=== PATIENT | male | born 1955 | race Caucasian/White ===

== ENCOUNTER 2017-01-18 09:33 | Inpatient (IN) | payer BC ==
--- NOTE | ~2017-01-18 | EGD ---
EGD REPORT [facility] [address] [address] NAME: ZULEYKA CLAY JR : 53 STATUS : ADM IN PAT#: [id number] AGE: 61 ADM/REG DATE : 01/18/17 MR#: [id number] REPORT SERV DATE: 01/20/17 DICTATED BY: MOHIT RENTERIA DATE: 01/20/17 REPORT STATUS : Draft TRANSCRIBED BY: [employer] DATE: 01/20/17 Endoscopy Center Patient Name: Zuleyka Clay Date of : 1955 Attending MD: MOHIT RENTERIA, Procedure Date No Time: 01/20/2017 Procedure: Upper GI endoscopy Indications: Iron deficiency anemia Medicines: Monitored Anesthesia Care Complications: No immediate complications. Estimated blood loss: None. Procedure: Pre-Anesthesia Assessment: - ASA Grade Assessment: II - A patient with mild systemic disease. After obtaining informed consent, the endoscope was passed under direct vision. Throughout the procedure, the patient's blood pressure, pulse, and oxygen saturations were monitored continuously. The GIF [id number] was introduced through the mouth, and advanced to the second part of duodenum. The upper GI endoscopy was accomplished without difficulty. The patient tolerated the procedure well. Findings: LA Grade C (one or more mucosal breaks continuous between tops of 2 or more mucosal folds, less than 75% circumference) esophagitis with no bleeding was found in the lower third of the esophagus. Biopsies were taken with a cold forceps for histology. Verification of patient identification for the specimen was done. Estimated blood loss was minimal. The exam of the esophagus was otherwise normal. Mild inflammation was found in the entire examined stomach. Biopsies were taken with a cold forceps for histology. Verification of patient identification for the specimen was done. Estimated blood loss was minimal. The cardia and gastric fundus were normal on retroflexion. The examined duodenum was normal. Multiple biopsies were obtained in the 2nd part of the duodenum with cold forceps for histology. Impression: - LA Grade C reflux esophagitis. Biopsied. - Gastritis. Biopsied. - Normal examined duodenum. - Multiple biopsies were obtained in the 2nd part of the duodenum. Recommendation: - Use Protonix (pantoprazole) 40 mg PO daily. EGD REPORT [address] [address] NAME: ZULEYKA CLAY JR : 53 STATUS : ADM IN [facility]#: [id number] AGE: 61 ADM/REG DATE : 01/18/17 MR#: [id number] REPORT SERV DATE: 01/20/17 DICTATED BY: MOHIT RENTERIA DATE: 01/20/17 REPORT STATUS : Draft TRANSCRIBED BY: [employer] DATE: 01/20/17 - Await pathology results. - Continue present medications. - Return to previous diet. Procedure Code(s): --- Professional --- 28237, Esophagogastroduodenoscopy, flexible, transoral; with biopsy, single or multiple Diagnosis Code(s): --- Professional --- K21.0, Gastro-esophageal reflux disease with esophagitis K29.70, Gastritis, unspecified, without bleeding D50.9, Iron deficiency anemia, unspecified CPT copyright 2013 [employer]. All rights reserved. The codes documented in this report are preliminary and upon railroad crossing protection maintainer review may be revised to meet current compliance requirements. MOHIT RENTERIA, 01/20/2017 1:14 PM Number of Addenda: 0 Note Initiated On: 01/20/2017 12:33 PM Scope Withdrawal Time 0 hours 0 minutes 0 seconds [id number] [id number]
--- NOTE | ~2017-01-18 | HP ---
History And Physical [place] [address] [facility] [place]. [address] NAME: ZULEYKA PEPE JR : 53 STATUS : REG ER PAT#: [id number] AGE: 61 ADM/REG DATE : 01/18/17 MR#: [id number] REPORT SERV DATE: 01/18/17 DICTATED BY: EVA CARTER DATE: 01/18/17 REPORT STATUS : Draft TRANSCRIBED BY: KEVIN DATE: 01/18/17 DATE OF ADMISSION: 01/18/2017 REASON FOR ADMISSION: Anemia, profound, hematocrit of 12.5%. HISTORY OF PRESENT ILLNESS: This is a 61-year-old white male, who says his coworkers said he looked pale for the last several months. He does have dyspnea with exertion and his gives out most of the time. He does not work out in the yard very much. At work today, he had chest pain and fell down. He did not lose consciousness. Had no seizure. He was brought to the emergency room from [facility] in [place], where he was found by Dr. Kaley Best to have a hematocrit of 12.5%, and a hemoglobin of 4. The patient is being set of transfusion right now. PAST MEDICAL HISTORY: This is his first hospitalization. He has no medical contact. No primary care physician. FAMILY HISTORY: His mother has had some heart troubles and is alive. Lives in [place]. He had a sister from lymphoma. He had a sister from alcoholism. SOCIAL HISTORY: He works at [employer]. Attends [employer] at [employer]. Lives in [place]. Does not smoke any cigarettes. He does not take any alcohol. Has no children. He is . REVIEW OF SYSTEMS: He has some chest pain, when he stood up, left precordial area. He had a near syncopal episode when he stood up. He has had no fever, chills, night sweats, melena, hematemesis, nausea, vomiting, or diarrhea. He has had no melena. He does have shortness of breath and fatigue. The remainder review of systems is negative. PHYSICAL EXAMINATION: VITAL SIGNS: Blood pressure was 117/72, with a heart rate 80, respiratory rate 18, and afebrile. HEENT: EOMI. Sclerae clear. Conjunctivae pink. NECK: No bruit without any JVD. CHEST: Clear to A and P. HEART: Regular S1, S2 without murmur, gallop, or click. ABDOMEN: Soft, nontender. Bowel sounds are positive. No HSM. EXTREMITIES: He has had no edema. Distal pulses are intact. DTRs are equal in the knees and ankles. Injury/Safety Hazard Assessment is equal and symmetric bilaterally. Coordination is intact. He has no tremor. GENERAL: He is very pale including the pallor of his tongue. HOME MEDICATIONS: Aspirin 325 p.o. b.i.d. p.r.n. headache, and Echinacea. LABORATORY DATA: His hemoglobin was 3.1, hematocrit 12.5, MCV is 58.1, white count of 6.4, History And Physical [address] [address] NAME: ZULEYKA PEPE JR : 53 STATUS : REG ER PAT#: [id number] AGE: 61 ADM/REG DATE : 01/18/17 MR#: [id number] REPORT SERV DATE: 01/18/17 DICTATED BY: EVA CARTER DATE: 01/18/17 REPORT STATUS : Draft TRANSCRIBED BY: MODL DATE: 01/18/17 and platelets 262,000. His INR was 1.2. PTT 28.8, protime of 15. His type and screen, O negative blood and he is antibody screen negative. Sodium 140, potassium 3.6, creatinine 0.72, BUN 7, glucose 103, and magnesium 2.5. Troponin is less than 0.02. Glucose 103. Chest x-ray was done that showed cardiomegaly, but no other cardiopulmonary process was noted. ASSESSMENT: 1. Anemia, profound and severe. 2. Chest pain secondary to #1. 3. Iron deficiency. MCV is 58. This anemia likely occurred over a long period of time with blood loss to unknown reason. He deserves a colonoscopy. We will transfuse him with 2 units of red cells now. If he is asymptomatic after that and hematocrit is over 20, we will discharge home for outpatient colonoscopy. PLAN: I am going to go ahead and start him on iron orally. We will have to send him to a primary care doctor after he leaves. DB/MODL Eva Carter M.D. / [phone] CC: Torres Barnes Jr, MD
--- NOTE | ~2017-01-18 | DS ---
Discharge Summary [place] [id number] [place]. [address] NAME: ZULEYKA PEPE JR : 53 STATUS : DIS IN PAT#: [id number] AGE: 61 ADM/REG DATE : 01/18/17 MR#: [id number] REPORT SERV DATE: 01/22/17 DICTATED BY: EVA DAVIDSON DATE: 01/21/17 REPORT STATUS : Draft TRANSCRIBED BY: MODL DATE: 01/21/17 ADMISSION DATE: 01/18/2017 DISCHARGE DATE: 01/21/2017 DISCHARGE DIAGNOSES: 1. Severe symptomatic microcytic anemia with admission hemoglobin 3.1, MCV 58.1. 2. Severe iron deficiency with iron less than 5, TIBC 459, and ferritin 1. 3. Chest pain associated with anemia. 4. Near-syncope associated with anemia. 5. Uncontrolled hypertension. 6. Internal hemorrhoids, on colonoscopy. 7. LA grade C reflux esophagitis, on EGD. 8. Gastritis, on EGD. OPERATIONS AND PROCEDURES: 1. Upper GI endoscopy with biopsy, 01/20/2017. 2. Colonoscopy, 01/20/2017. PRESENT ILLNESS: This is a 61-year-old white male who was triaged in the emergency room on 01/18/2017 at 0933 hours complaining of chest tightness. In the emergency room, he was found to have a hemoglobin of 3.1. He was referred to the Hospitalist Service for admission. He was seen by Dr. Eva Bradley and admitted as described on admission history and physical examination. ADDITIONAL HISTORY: Per Dr. Bradley. PHYSICAL EXAMINATION: Per Dr. Bradley. ADMISSION LABORATORY: Per Dr. Bradley. HOSPITAL COURSE: He was admitted to [address] [place] [address] with a severe symptomatic microcytic anemia as described. On admission, he was transfused to a hemoglobin of 7.5, which required 4 units of packed red blood cells. Iron studies were obtained and are as noted above. He was started on both p.o. iron and IV Nulecit. Serial troponins x3 were less than 0.02. An echocardiogram was done that showed an EF of 50% with a small pericardial effusion. Post transfusion, he did not have further near-syncope or any chest pain. GI consultation was obtained. On 01/20/2017, he was taken to the GI lab. Colonoscopy and Discharge Summary [place] [address] [address] NAME: ZULEYKA PEPE JR : 53 STATUS : DIS IN PAT#: [id number] AGE: 61 ADM/REG DATE : 01/18/17 MR#: [id number] REPORT SERV DATE: 01/22/17 DICTATED BY: EVA DAVIDSON DATE: 01/21/17 REPORT STATUS : Draft TRANSCRIBED BY: MODL DATE: 01/21/17 EGD were performed by Dr. Esteban with findings as noted above. Biopsies are pending. He was recommended that he take Protonix 40 mg daily. Pending biopsy results and followup hemoglobin and iron studies, he may require further GI evaluation such as capsule endoscopy, etc. There were no in-hospital complications. It was noted that he had high blood pressure, which had not been previously documented. Blood pressures while hospitalized were as high as 186/90. He was treated with p.r.n. hydralazine with plans to transition to p.o. medications at discharge. When seen on 01/21/2017, except for poor rest, he felt well with no chest pain or dizziness. He was eating. His hemoglobin was 7.5. At this point in his hospitalization, it was felt he had achieved a level of improvement and stability where he could be safely discharged home. A new appointment is being scheduled for him to see Dr. Lillian Cruz on 01/28/2017 at 2:45. He will continue with home diet and activity. He was advised not to use any NSAIDs. DISCHARGE MEDICATIONS: Will be Protonix 40 mg daily, slow iron 1 daily, and Norvasc 5 mg daily until followup with Dr. Cruz. GI was to follow up his biopsy results and contact him. DD/KEVIN Eva Davidson M.D. / [id number] CC: Josef Jackson M.D. [facility] [place]
--- NOTE | ~2017-01-18 | CN ---
Consultation Report [facility] [address] [place]. [address] NAME: ZULEYKA CLAY JR : 53 STATUS : ADM IN [facility]#: [id number] AGE: 61 ADM/REG DATE : 01/18/17 MR#: [id number] REPORT SERV DATE: 01/19/17 DICTATED BY: DUSTIN ESTEBAN DATE: 01/19/17 REPORT STATUS : Draft TRANSCRIBED BY: MODL DATE: 01/19/17 CONSULTATION DATE OF CONSULTATION: 01/19/2017 REASON FOR CONSULTATION: Severe iron deficiency anemia. HISTORY OF PRESENT ILLNESS: Mr. Clay is a 61-year-old man, who has had approximately eight to nine months history of progressive weakness, shortness of breath, dyspnea on exertion, presented yesterday with chest tightness. Came to the emergency room, and was noted to have a hemoglobin in the 3 range. He was transfused. He was noted to be markedly microcytic. The patient denies any overt bleeding such as black-tarry stools or bright red blood per rectum. He reports he takes 2 aspirins for headaches approximately one to two times every one to two weeks. PAST MEDICAL HISTORY: Essentially unremarkable. ALLERGIES: HE IS ALLERGIC TO ERYTHROMYCIN. HOME MEDICATIONS: None. FAMILY HISTORY: There is no family history of GI or other GI malignancy. SOCIAL HISTORY: He does not smoke. He reports he drinks approximately once every four months. REVIEW OF SYSTEMS: As mentioned in the HPI, but was otherwise negative. PHYSICAL EXAMINATION: VITAL SIGNS: Revealed a temperature of 97.6, heart rate of 74, blood pressure 165/99, and O2 saturation was 99% on room air. GENERAL: The patient was lying in bed, in no apparent distress. HEENT: His head is atraumatic and normocephalic. His sclerae were nonicteric. His conjunctivae were clear. NECK: Revealed no crepitus or thyromegaly. LUNGS: Clear to auscultation bilaterally. ABDOMEN: Nontender and nondistended. There is no guarding or rebound. EXTREMITIES: Revealed no clubbing, cyanosis, or edema. SKIN: Revealed possibly vitiligo on the upper arms, but no other changes. PSYCH: He is alert and oriented x3 with a proper affect and mood. NEUROLOGIC: He had no tremor or asterixis. LABORATORY VALUES: Initial hemoglobin was 3.1. It is currently 6.3, although he has Consultation Report [place] [address] [place]. [address] NAME: ZULEYKA CLAY JR : 53 STATUS : ADM IN [facility]#: [id number] AGE: 61 ADM/REG DATE : 01/18/17 MR#: [id number] REPORT SERV DATE: 01/19/17 DICTATED BY: DUSTIN ESTEBAN DATE: 01/19/17 REPORT STATUS : Draft TRANSCRIBED BY: MODL DATE: 01/19/17 received blood since this time. His platelets were 262. His ferritin was 1. His B12 and folate were normal. IMPRESSION: Severe iron deficiency. PLAN: We will plan an upper and lower endoscopy. This was explained to the patient in detail including the risks of bleeding, infection, perforation, adverse reaction to sedatives. He was notified that he could take a prep for the procedure. He was notified any complication could require surgery and be life threatening. The patient is agreeable to proceed, scheduled the following day. Thank for allowing me to evaluate the patient. Please do not hesitate if you have any further concerns or questions. GO/MODL Dustin Esteban MD / [id number] CC: Spencer Davidson M.D.
--- NOTE | ~2017-01-18 | EGD ---
EGD REPORT [facility] [address] [address] NAME: ADAM CLAY JR : 53 STATUS : ADM IN PAT#: [id number] AGE: 61 ADM/REG DATE : 01/18/17 MR#: [id number] REPORT SERV DATE: 01/20/17 DICTATED BY: MOHIT RENTERIA DATE: 01/20/17 REPORT STATUS : Draft TRANSCRIBED BY: [employer] DATE: 01/20/17 Endoscopy Center Patient Name: Adam Clay Date of : 1955 Attending MD: MOHIT RENTERIA, Procedure Date No Time: 01/20/2017 Procedure: Colonoscopy Indications: Iron deficiency anemia Medicines: Monitored Anesthesia Care Complications: No immediate complications. Estimated blood loss: None. Procedure: Pre-Anesthesia Assessment: - ASA Grade Assessment: II - A patient with mild systemic disease. After I obtained informed consent, the scope was passed under direct vision. Throughout the procedure, the patient's blood pressure, pulse, and oxygen saturations were monitored continuously. The CF [id number] was introduced through the anus and advanced to the terminal ileum. The colonoscopy was performed without difficulty. The patient tolerated the procedure well. The quality of the bowel preparation was adequate. Findings: The perianal and digital rectal examinations were normal. Internal hemorrhoids were found during retroflexion and were Grade II (internal hemorrhoids that prolapse but reduce spontaneously). The exam was otherwise without abnormality on direct and retroflexion views. The terminal ileum appeared normal. Impression: - Internal hemorrhoids. - The examination was otherwise normal on direct and retroflexion views. - The examined portion of the ileum was normal. Recommendation: - Patient has a contact number available for emergencies. The signs and symptoms of potential delayed complications were discussed with the patient. Return to normal activities tomorrow. Written discharge instructions were provided to the patient. - Return to previous diet. - Continue present medications. - Repeat colonoscopy in 10 years for screening purposes. - Arrange outpatient pillcam. EGD REPORT [facility] [address] [place], [place] [address]. [address] NAME: ADAM CLAY JR : 53 STATUS : ADM IN [facility]#: [id number] AGE: 61 ADM/REG DATE : 01/18/17 MR#: [id number] REPORT SERV DATE: 01/20/17 DICTATED BY: MOHIT RENTERIA DATE: 01/20/17 REPORT STATUS : Draft TRANSCRIBED BY: [employer] DATE: 01/20/17 Procedure Code(s): --- Professional --- 30155, Colonoscopy, flexible, proximal to splenic flexure; diagnostic, with or without collection of specimen(s) by brushing or washing, with or without colon decompression (separate procedure) Diagnosis Code(s): --- Professional --- K64.1, Second degree hemorrhoids D50.9, Iron deficiency anemia, unspecified CPT copyright 2013 [place] [employer]. All rights reserved. The codes documented in this report are preliminary and upon label printing machinist review may be revised to meet current compliance requirements. MOHIT RENTERIA, 01/20/2017 1:17 PM Number of Addenda: 0 Note Initiated On: 01/20/2017 12:18 PM Scope Withdrawal Time 0 hours 13 minutes 42 seconds [address] [facility] [place] [address]
[2017-01-18 11:18] LABS: INTERNATIONAL NORMAL RATI 1.2 UNITS (-); PARTIAL THROMBO TIME 28.8 SEC (22.5-37.2); PROTIME (NOT ORD) 15.4 SEC (12.0-14.5)
[2017-01-18 11:29] LABS: BUN (BLOOD UREA NITROGEN) 7 MG/DL (6-23); CALCIUM, SERUM 8.1 MG/DL (8.5-10.4); CHEST PAIN PROFILE TAT 0 Hrs 22 Mins; CHLORIDE, SERUM 107 MMOL/L (96-112); CO2 (CARBON DIOXIDE) 22 MMOL/L (24-34); CREATININE 0.72 MG/DL (0.70-1.30); GFR AFRICAN AMERICAN 116 ML/MIN (>=60); GFR NON AFRICAN AMERICAN 100 ML/MIN (>=60); GLUCOSE, SERUM 103 MG/DL (60-99); POTASSIUM, SERUM 3.9 MMOL/L (3.5-5.3); SODIUM, SERUM 140 MMOL/L (135-148); TROPONIN I <0.02 NG/ML (<0.05)
[2017-01-18 12:11] LABS: MEAN CORPUS HGB CONC 24.8 g/dL (32.0-36.0); MEAN CORPUSCULAR HEMOGLOB 14.4 pg (26.0-34.0); MEAN CORPUSCULAR VOLUME 58.1 fL (80-100); MEAN PLATELET VOLUME 7.6 fL (9.2-13.0); NUCLEATED RED BLOOD CELLS 0.7 /100WBC (0-0); PLATELET COUNT 262 10/3/uL (150-400); RBC DISTRIBUTION WIDTH 22.3 % (12.0-16.0); RED CELL COUNT 2.15 10/6/uL (4.7-6.1); WHITE BLOOD CELLS 6.4 10/3/uL (4.5-10.5)
[2017-01-18 12:12] LABS: ER CBC TAT 1 Hrs 04 Mins; HEMATOCRIT 12.5 % (40.0-51.0); HEMOGLOBIN 3.1 g/dL (13.6-17.8)
[2017-01-18 12:15] LABS: MANUAL DIFF YES %
[2017-01-18] MEDS ORDERED: ASABAYER PO (13:01)
[2017-01-18] MEDS ORDERED: ECHINACEA PO (13:02)
[2017-01-18 13:04] LABS: HYPOCHROMIA 3+ (>30/OIF) (0-2/OIF); PLATELET ESTIMATE ADQ (ADEQUATE); ROULEAUX FORMATION 1+; SCHISTOCYTES OCC (0-2/OIF); TEARDROP SHAPED RBCS OCC (0-2/OIF)
[2017-01-18 14:14] LABS: ASCORBIC ACID (UR NOT ORDER) NEG (NEG); BILIRUBIN, URINE NEGATIVE (NEG); ER URINALYSIS TAT 0 Hrs 08 Mins; KETONE, URINE NEGATIVE (NEG); LEUKOCYTE ESTERASE(NOT OR NEG (NEG); NITRITE (URINE) NEG (NEG); WBC (NOT ORDERED) (RFLEX) < 1 (0-5)
[2017-01-18 14:25] LABS: RETICULOCYTE COUNT 2.6 % (0.5-2.9); RETICULOCYTE COUNT ABSOLUTE 56.8 10/3/uL (20.2-119.8)
[2017-01-18 14:43] LABS: FERRITIN 1 NG/ML (26-388); IRON BINDING CAPACITY 459 MCG/DL (250-450)
[2017-01-18 14:44] LABS: FOLATE 14.9 NG/ML (>5.2); IRON, SERUM < 5 MCG/DL (35-150)
[2017-01-18 20:28] LABS: HEMATOCRIT 19.1 % (40.0-51.0); HEMOGLOBIN 5.4 g/dL (13.6-17.8)
[2017-01-19 08:13] LABS: BASOPHILS ABSOLUTE 0.06 10/3/uL (0.0-0.16); EOSINOPHILS 5.9 %; EOSINOPHILS ABSOLUTE 0.36 10/3/uL (0.0-0.53); IMMATURE GRANULOCYTES 0.5 %; IMMATURE GRANULOCYTES ABSOLUTE 0.03 10/3/uL (0.0-0.11); LYMPHOCYTES 16.2 %; LYMPHOCYTES ABSOLUTE 0.99 10/3/uL (0.67-4.30); MEAN PLATELET VOLUME 8.5 fL (9.2-13.0); MONOCYTES 8.3 %; MONOCYTES ABSOLUTE 0.51 10/3/uL (0.21-1.20); NEUTROPHILS 68.1 %; NEUTROPHILS ABSOLUTE 4.17 10/3/uL (2.02-8.40); PLATELET COUNT 229 10/3/uL (150-400); WHITE BLOOD CELLS 6.1 10/3/uL (4.5-10.5)
[2017-01-19 08:14] LABS: HEMATOCRIT 19.8 % (40.0-51.0); HEMOGLOBIN 6.3 g/dL (13.6-17.8); MANUAL DIFF NO %; MEAN CORPUS HGB CONC 31.8 g/dL (32.0-36.0); MEAN CORPUSCULAR HEMOGLOB 21.1 pg (26.0-34.0); MEAN CORPUSCULAR VOLUME 66.2 fL (80-100); RBC DISTRIBUTION WIDTH 28.1 % (12.0-16.0); RED CELL COUNT 2.99 10/6/uL (4.7-6.1)
[2017-01-19 08:32] LABS: PLATELET ESTIMATE ADQ (ADEQUATE)
[2017-01-19 08:33] LABS: ANISOCYTOSIS 4+ (>50/OIF) (0-5/OIF); ELLIPTOCYTES 1+ (3-10/OIF) (0-2/OIF); HYPOCHROMIA 1+ (3-10/OIF) (0-2/OIF); POIKILOCYTOSIS 1+ (5-10/OIF) (0-5/OIF); TEARDROP SHAPED RBCS FEW (3-10/OIF)
[2017-01-19 08:34] LABS: SCHISTOCYTES OCC (0-2/OIF)
[2017-01-19 17:07] LABS: HEMOGLOBIN 7.5 g/dL (13.6-17.8)
[2017-01-19 17:14] LABS: HEMATOCRIT 24.1 % (40.0-51.0)
[2017-01-20 07:20] LABS: BASOPHILS 1.3 %; BASOPHILS ABSOLUTE 0.09 10/3/uL (0.0-0.16); EOSINOPHILS 4.2 %; EOSINOPHILS ABSOLUTE 0.29 10/3/uL (0.0-0.53); HEMATOCRIT 24.4 % (40.0-51.0); HEMOGLOBIN 7.5 g/dL (13.6-17.8); IMMATURE GRANULOCYTES ABSOLUTE 0.07 10/3/uL (0.0-0.11); LYMPHOCYTES 18.1 %; LYMPHOCYTES ABSOLUTE 1.24 10/3/uL (0.67-4.30); MEAN CORPUS HGB CONC 30.7 g/dL (32.0-36.0); MEAN CORPUSCULAR HEMOGLOB 21.4 pg (26.0-34.0); MEAN PLATELET VOLUME 8.7 fL (9.2-13.0); MONOCYTES 9.2 %; MONOCYTES ABSOLUTE 0.63 10/3/uL (0.21-1.20); NEUTROPHILS 66.2 %; NEUTROPHILS ABSOLUTE 4.54 10/3/uL (2.02-8.40); PLATELET COUNT 247 10/3/uL (150-400); WHITE BLOOD CELLS 6.9 10/3/uL (4.5-10.5)
[2017-01-20 07:21] LABS: MANUAL DIFF NO %; MEAN CORPUSCULAR VOLUME 69.7 fL (80-100)
[2017-01-20 07:29] LABS: BUN (BLOOD UREA NITROGEN) 7 MG/DL (6-23); CALCIUM, SERUM 8.1 MG/DL (8.5-10.4); CHLORIDE, SERUM 108 MMOL/L (96-112); CO2 (CARBON DIOXIDE) 20 MMOL/L (24-34); GFR AFRICAN AMERICAN 125 ML/MIN (>=60); GFR NON AFRICAN AMERICAN 108 ML/MIN (>=60); GLUCOSE, SERUM 96 MG/DL (60-99); POTASSIUM, SERUM 3.9 MMOL/L (3.5-5.3); SODIUM, SERUM 140 MMOL/L (135-148)
[2017-01-20 07:36] LABS: ACANTHOCYTES OCC (0-2/OIF); PLATELET ESTIMATE ADQ (ADEQUATE); RBC MORPHOLOGY ABN (NORMAL); TARGET CELLS OCC (1-2/OIF) (0-1/OIF); TEARDROP SHAPED RBCS FEW (3-10/OIF)
[2017-01-20 07:38] LABS: SCHISTOCYTES OCC (0-2/OIF)
[2017-01-21 06:51] LABS: BASOPHILS 1.2 %; EOSINOPHILS 3.9 %; EOSINOPHILS ABSOLUTE 0.31 10/3/uL (0.0-0.53); HEMOGLOBIN 7.5 g/dL (13.6-17.8); IMMATURE GRANULOCYTES 1.2 %; LYMPHOCYTES 16.6 %; LYMPHOCYTES ABSOLUTE 1.33 10/3/uL (0.67-4.30); MEAN CORPUS HGB CONC 31.3 g/dL (32.0-36.0); MEAN CORPUSCULAR HEMOGLOB 22.3 pg (26.0-34.0); MEAN CORPUSCULAR VOLUME 71.2 fL (80-100); MEAN PLATELET VOLUME 8.7 fL (9.2-13.0); MONOCYTES 7.1 %; MONOCYTES ABSOLUTE 0.57 10/3/uL (0.21-1.20); NEUTROPHILS ABSOLUTE 5.62 10/3/uL (2.02-8.40); PLATELET COUNT 239 10/3/uL (150-400); RED CELL COUNT 3.37 10/6/uL (4.7-6.1)
[2017-01-21 06:54] LABS: MANUAL DIFF NO %
[2017-01-21 07:40] LABS: HYPOCHROMIA 1+ (3-10/OIF) (0-2/OIF); PLATELET ESTIMATE ADQ (ADEQUATE); POIKILOCYTOSIS 1+ (5-10/OIF) (0-5/OIF); POLYCHROMASIA 1+ (2-5/OIF) (0-1/OIF)
[2017-01-21 07:41] LABS: ELLIPTOCYTES 1+ (3-10/OIF) (0-2/OIF)
[2017-01-21] MEDS ORDERED: PROTONIX PO (11:51)
[2017-01-21] MEDS ORDERED: NORV5 PO (11:52)
== END 2017-01-21 15:13 | disposition home or self-care (01) | DRG 812 ==
LOC: ER 09:33 → 6NO 14:43
PROVIDERS: Internal Medicine; Internal Medicine Gastroenterology; Physician Assistant
PROC: 30233N1 Transfusion of Nonautologous Red Blood Cells into Peripheral Vein, Percutaneous Approach (ICD-10-PCS; 2017-01-19)
PROC: 0DJD8ZZ Inspection of Lower Intestinal Tract, Via Natural or Artificial Opening Endoscopic (ICD-10-PCS; principal; 2017-01-20 12:47)
PROC: 0DB38ZX Excision of Lower Esophagus, Via Natural or Artificial Opening Endoscopic, Diagnostic (ICD-10-PCS; 2017-01-20 12:47)
DX: D50.9 Iron deficiency anemia, unspecified (principal); I10 Essential (primary) hypertension; K64.1 Second degree hemorrhoids; K21.0 Gastro-esophageal reflux disease with esophagitis; K29.70 Gastritis, unspecified, without bleeding; Z81.1 Family history of alcohol abuse and dependence; Z80.7 Family history of other malignant neoplasms of lymphoid, hematopoietic and related tissues; Z79.82 Long term (current) use of aspirin
CPT/HCPCS: 36415; 36430; 71010; 80048; 81001; 82272; 82607; 82728; 82746; 83540; 83550; 83735; 84443; 84484; 85014; 85018; 85025; 85045; 85610; 85730; 86850; 86900; 86901; 86920; 88305; 88342; 93005; 93306; 99285; A9270-GY; J0360; J2370; J2916; P9016